=== PATIENT | female | born 1950 | race African-American/Black ===

== ENCOUNTER 2019-05-22 08:30 | Emergency (ER) | payer OTHER ==
[2019-05-22] MEDS ORDERED: CEPHALEXIN 250 MG CAPSULE PO ONE (09:15)
[2019-05-22] MEDS ORDERED: NEOMY/BACITR/POLYMYXIN OINT PACKET. TP ONE (09:15)
[2019-05-22] MEDS ORDERED: CEPH-264 PO ×2 (09:19→09:43)
--- NOTE | 2019-05-22 09:19 | PHYS DOC ---
Past History Past Medical History: Diabetes, Hypertension, Hypothyroid Additional Past Medical Histor: Chronic foot corns Past Surgical History: Hysterectomy Smoking: Non-smoker Alcohol Use: None Drug Use: None Adult General Chief Complaint Chief Complaint: FOOT INJURY PAIN HPI HPI 68-year-old female presents with blister to left foot which started yesterday. Patient reports history of diabetes. Reports history of corns to her feet. 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 Patient reports had soaked her foot yesterday and some apple cider vinegar and noticed today a large blister to bottom and side of the foot. Reports it might have an caused by the shoes she wore after her soaking. Denies fever or chills. Denies redness. Reports difficulty walking due to discomfort from the blister Review of Systems Review of Systems Constitutional: Denies fever or chills Eyes: Denies redness or eye pain HENT: Denies nasal congestion or sore throat Respiratory: Denies cough or shortness of breath Cardiovascular: Denies chest pain or palpitations GI: Denies abdominal pain, nausea, or vomiting : Denies dysuria or hematuria Musculoskeletal: Denies back pain or joint pain Integument: Denies rash; reports blister to bottom of left foot Neurologic: Denies headache, focal weakness or sensory changes Complete systems were reviewed and found to be within normal limits, except as documented in this note. Allergies Allergies Allergies Coded Allergies Type Severity Reaction Last Updated Verified No Known Drug Allergies 05/22/19 No Physical Exam Physical Exam Constitutional: Well developed, well nourished, no acute distress, non-toxic appearance HENT: Normocephalic, atraumatic, oropharynx moist Eyes: Conjunctiva normal, no discharge Neck: Normal range of motion, no tenderness, supple Cardiovascular: Left foot DP and PT +21, CR < 2 sec Lungs & Thorax: No respiratory distress Skin: Warm, dry, no erythema, no rash Extremities: No tenderness, ROM intact, left cloudy blister noted to plantar aspect of ball of foot extending medially to side, no surrounding erythema, corns/dry patches noted to bottom of foot Neurologic: Alert and oriented X 3, no focal deficits noted Psychologic: Affect normal, judgement normal EKG EKG [] Radiology/Procedures Radiology/Procedures [] Course & Med Decision Making Course & Med Decision Making Patient presents with blister likely secondary to infection to bottom of left foot. Patient with history of diabetes. Patient reports unable to ambulate due to swelling/discomfort. Blister surgically decompressed with notation of puruent discharge. Oral antibiotic initiated. Patient stable for discharge with outpatient follow-up with PCP. Discussed findings and plan with patient, who acknowledges understanding and agreement. Dragon Disclaimer Dragon Disclaimer This electronic medical record was generated, in whole or in part, using a voice recognition dictation system. Incision and Drainage Incision and Drainage : Site: left foot blister Blade Size: 11 I & D Procedure: sterile dressing applied Progress Verbal consent obtained. Time out performed. Hand hygiene utilized. Wound cleaned with ChloraPrep. Small incision of left foot blister made with 11 blade scalpel. Significant malodorous purulent serosanguineous discharge expressed. Copious irrigation performed. Sterile dressing applied. Patient tolerated procedure well and without difficulty. Departure Departure: Impression: Primary Impression: Infected blister of foot Disposition: HOME, SELF-CARE Condition: STABLE Referrals: JAN AHUJA MD (PCP) Patient Instructions: Blisters, Wound Care, [id number] Additional Instructions: Do not soak your wound. You may shower. Clean wound daily with soap and water. Change dressing 2 times daily. Use over the counter antibiotic ointment with each dressing change. Scripts Cephalexin (KEFLEX) 500 Mg Capsule 1 CAP PO QID for Wound for 7 Days, #28 CAP 0 Refills Prov: JOSE LAST DO 05/22/19 Problem Qualifiers Primary Impression: Infected blister of foot Encounter type: initial encounter Laterality: left Qualified Codes: S90.822A - Blister (nonthermal), left foot, initial encounter; L08.9 - Local infection of the skin and subcutaneous tissue, unspecified JOSE LAST DO May 22, 2019 09:19
[2019-05-22 09:50] VITALS: BP 166/93
== END 2019-05-22 09:49 | disposition home or self-care (01) ==
LOC: ER 08:30
DX: S90.822A Blister (nonthermal), left foot, initial encounter (principal); L08.9 Local infection of the skin and subcutaneous tissue, unspecified; E11.9 Type 2 diabetes mellitus without complications; I10 Essential (primary) hypertension; E03.9 Hypothyroidism, unspecified; X58.XXXA Exposure to other specified factors, initial encounter; Y93.89 Activity, other specified; Y92.89 Other specified places as the place of occurrence of the external cause; Y99.8 Other external cause status
CPT/HCPCS: 10060; 10140; 99283; 99284

== ENCOUNTER → 2020-04-27 | Outpatient (CLI) | payer MEDICARE ==
[~2020-04-27] MED LIST: CEPH-264 PO
--- NOTE | 2020-05-04 17:42 | RAD ---
DATE: 04/27/2020 EXAM: MAMMO [facility] SCREENING BILATERAL HISTORY: Screening COMPARISON: 04/13/2013, 02/25/2018 This study was interpreted with the benefit of Computerized Aided Detection (CAD). Breast Density: SCATTERED The breast parenchyma shows scattered fibroglandular densities. Breast parenchyma level B. FINDINGS: No mass, suspicious calcification, or architectural distortion in either breast. There are benign calcifications bilaterally. IMPRESSION: No evidence of malignancy. BI-RADS CATEGORY: 2 BENIGN FINDING(S) RECOMMENDED FOLLOW-UP: 12M 12 MONTH FOLLOW-UP PQRS compliance statement: Patient information was entered into a reminder system with a target due date for the next mammogram. Mammography is a sensitive method for finding small breast cancers, but it does not detect them all and is not a substitute for careful clinical examination. A negative mammogram does not negate a clinically suspicious finding and should not result in delay in biopsying a clinically suspicious abnormality. "Our facility is accredited by the [employer] Mammography Program."
== END ==
LOC: MAMMO 11:11
PROVIDERS: ATTEND Family Medicine
DX: Z12.31 Encounter for screening mammogram for malignant neoplasm of breast (principal)
CPT/HCPCS: 77063; 77067

== ENCOUNTER → 2021-04-30 | Outpatient (CLI) | payer MEDICARE ==
--- NOTE | 2021-04-30 17:30 | RAD ---
Bilateral digital screening 2-D and 3-D (digital breast tomosynthesis) mammogram: Reason for examination: Routine screening. Comparison: Mammograms from the 04/27/2020 and 02/25/2018. Interpretation was made with the benefit of CAD. FINDINGS: Breast density: Category B. There are scattered areas of fibroglandular density. No suspicious breast mass, malignant appearing calcifications, or architectural distortion is seen. IMPRESSION: No evidence of malignancy. Assessment: BI-RADS 1. Negative. Recommendation: Routine screening mammograms. The patient will receive a letter with the results in the mail. Patient information will be entered i nto the mammography reminder system with a target recall date for the next mammogram. A reminder duarte er will be generated. Electronically signed by: Alondra Quach MD (04/30/2021 5:28 PM) [id number]
== END ==
LOC: MAMMO 08:06
PROVIDERS: ATTEND Family Medicine
DX: Z12.31 Encounter for screening mammogram for malignant neoplasm of breast (principal)
CPT/HCPCS: 77063; 77067